=== PATIENT | male | born 1995 | race Caucasian/White ===

== ENCOUNTER 2024-02-20 05:10 | Inpatient (IN) | payer OTHER ==
[2024-02-20 05:17] VITALS: BMI 31.5
[2024-02-20] MEDS ORDERED: PANTOPRAZOLE SODIUM 40 MG VIAL ONE (06:11)
[2024-02-20] MEDS: SODIUM CHLORIDE 0.9% 500 ML INFUS.BAG IV ONE ×2 (06:17→06:18)
[2024-02-20] MEDS: PANTOPRAZOLE 40 MG TABLET PO ONE (06:18)
[2024-02-20] MEDS: PANTOPRAZOLE SODIUM 40 MG VIAL IVPUSH ONE (06:18)
[2024-02-20 06:29] LABS: VENOUS BASE EXCESS -9.5 mmol/L (-2-2); VENOUS O2 SATURATION 70.3 % (70-80); VENOUS PCO2 35.4 mmHg (38-52); VENOUS PH 7.282 (7.310-7.410)
[2024-02-20 06:46] LABS: POTASSIUM 3.5 mmol/L (3.5-5.1)
[2024-02-20 06:48] LABS: CALCIUM 7.8 mg/dL (8.5-10.1)
[2024-02-20 06:49] LABS: ALBUMIN 2.8 g/dl (3.4-5.0); BLOOD UREA NITROGEN 36.9 mg/dL (7-18)
[2024-02-20 06:51] LABS: INR 1.13 (0.83-1.09); PROTHROMBIN TIME (PATIENT) 12.9 SEC (9.7-13.0)
[2024-02-20 06:52] LABS: CREATININE 1.6 mg/dL (0.55-1.3)
[2024-02-20 06:53] LABS: BASO % 0.4 % (0-2.0); HEMATOCRIT 19.6 % (35.4-49); LYMPH % 16.7 % (8-40); MCH 27.9 pg (25.7-33.7); MCHC 32.2 g/dl (32.0-35.9); MEAN CELL VOLUME 86.7 fl (80-96); MEAN PLT VOLUME 8.1 fl (7.5-11.1); MONO % 4.9 % (3.8-10.2); PLATELET COUNT 412 10^3/uL (134-434); RBC 2.26 M/mm3 (4.00-5.60); RDW 12.7 % (11.9-15.9); WHITE BLOOD COUNT 25.9 K/mm3 (4.0-10.0)
[2024-02-20 06:54] LABS: BILIRUBIN,TOTAL 0.4 mg/dL (0.2-1); TOT PROT 4.9 g/dl (6.4-8.2)
[2024-02-20 07:07] LABS: HEMOGLOBIN 6.3 GM/dL (11.7-16.9)
[2024-02-20 07:10] LABS: LACTIC ACID 8.3 mmol/L (0.4-2.0)
[2024-02-20] MEDS: LACTATED RINGERS SOLUTION 1000 ML INFUS.BAG IV ONE (08:12)
[2024-02-20 08:27] LABS: URINE APPEARANCE CLEAR; URINE BILIRUBIN NEGATIVE (NEGATIVE); URINE COLOR YELLOW; URINE GLUCOSE (UA) NEGATIVE (NEGATIVE); URINE KETONE 2+ (NEGATIVE); URINE LEUK ESTERASE NEGATIVE (NEGATIVE); URINE NITRITE NEGATIVE (NEGATIVE); URINE PROTEIN NEGATIVE (NEGATIVE); URINE UROBILINOGEN 0.2 mg/dL (0.2-1.0)
[2024-02-20 08:36] LABS: METHADONE, UR NEGATIVE (NEGATIVE); OPIATES, URI NEGATIVE (NEGATIVE); URINE BARBITURATES NEGATIVE (NEGATIVE); URINE BENZODIAZEPINES NEGATIVE (NEGATIVE)
[2024-02-20 08:37] LABS: COCAINE, UR POSITIVE (NEGATIVE); PHENCYCLIDINE,URINE NEGATIVE (NEGATIVE); URINE AMPHETAMINES NEGATIVE (NEGATIVE)
[2024-02-20 08:56] LABS: ANISOCYTOSIS 0; MACROCYTOSIS 0
[2024-02-20 09:35] LABS: HEMATOCRIT 16.8 % (35.4-49); MCH 28.4 pg (25.7-33.7); MCHC 33.4 g/dl (32.0-35.9); MEAN CELL VOLUME 85.2 fl (80-96); MEAN PLT VOLUME 8.2 fl (7.5-11.1); PLATELET COUNT 305 10^3/uL (134-434); RBC 1.97 M/mm3 (4.00-5.60); WHITE BLOOD COUNT 20.1 K/mm3 (4.0-10.0)
[2024-02-20 09:50] LABS: HEMOGLOBIN 5.6 GM/dL (11.7-16.9)
[2024-02-20 10:19] LABS: ANISOCYTOSIS 0; MACROCYTOSIS 0
[2024-02-20] MEDS: SODIUM CHLORIDE 1,000 ML IV SCH (13:04)
[2024-02-20] MEDS ORDERED: THIAMINE 100 MG TABLET ONE (14:57)
[2024-02-20] MEDS ORDERED: FOLIC ACID 1 MG TABLET (FP) ONE (14:57)
[2024-02-20] MEDS: THIAMINE 100 MG TABLET PO SCH (15:03)
[2024-02-20] MEDS: FOLIC ACID 1 MG TABLET (FP) PO SCH (15:03)
[2024-02-20] MEDS: PANTOPRAZOLE SODIUM 160 MG in SODIUM CHLORIDE 250 ML IVPB SCH (16:55)
[2024-02-21 01:29] LABS: BASO % 0.7 % (0-2.0); EOS % 0.5 % (0-4.5); HEMATOCRIT 21.6 % (35.4-49); HEMOGLOBIN 7.3 GM/dL (11.7-16.9); LYMPH % 23.4 % (8-40); MCH 29.6 pg (25.7-33.7); MCHC 33.9 g/dl (32.0-35.9); MEAN CELL VOLUME 87.4 fl (80-96); MEAN PLT VOLUME 7.4 fl (7.5-11.1); MONO % 10.3 % (3.8-10.2); NEUT % 65.1 % (42.8-82.8); PLATELET COUNT 288 10^3/uL (134-434); RBC 2.47 M/mm3 (4.00-5.60); RDW 13.8 % (11.9-15.9); WHITE BLOOD COUNT 11.5 K/mm3 (4.0-10.0)
[2024-02-21 07:48] LABS: BASO % 0.7 % (0-2.0); EOS % 0.6 % (0-4.5); LYMPH % 22.5 % (8-40); MCH 30.7 pg (25.7-33.7); MCHC 35.2 g/dl (32.0-35.9); MEAN CELL VOLUME 87.3 fl (80-96); MEAN PLT VOLUME 7.8 fl (7.5-11.1); MONO % 8.3 % (3.8-10.2); NEUT % 67.9 % (42.8-82.8); PLATELET COUNT 273 10^3/uL (134-434); RBC 2.29 M/mm3 (4.00-5.60); RDW 13.6 % (11.9-15.9)
[2024-02-21 08:14] LABS: POTASSIUM 4.2 mmol/L (3.5-5.1)
[2024-02-21 08:28] LABS: ALBUMIN 2.6 g/dl (3.4-5.0); BLOOD UREA NITROGEN 20.2 mg/dL (7-18); CALCIUM 7.9 mg/dL (8.5-10.1); MAGNESIUM 2.1 mg/dL (1.8-2.4)
[2024-02-21 08:31] LABS: CREATININE 1.1 mg/dL (0.55-1.3)
[2024-02-21 08:32] LABS: PHOSPHOROUS 2.8 mg/dL (2.5-4.9)
[2024-02-21 08:33] LABS: TOT PROT 4.7 g/dl (6.4-8.2)
[2024-02-21 08:34] LABS: BILIRUBIN,TOTAL 0.6 mg/dL (0.2-1)
[2024-02-22 09:05] LABS: BASO % 0.7 % (0-2.0); EOS % 0.6 % (0-4.5); HEMATOCRIT 20.7 % (35.4-49); LYMPH % 23.6 % (8-40); MCH 30.1 pg (25.7-33.7); MEAN CELL VOLUME 88.5 fl (80-96); MEAN PLT VOLUME 7.5 fl (7.5-11.1); MONO % 7.2 % (3.8-10.2); NEUT % 67.9 % (42.8-82.8); PLATELET COUNT 290 10^3/uL (134-434); RBC 2.34 M/mm3 (4.00-5.60); RDW 14.7 % (11.9-15.9); WHITE BLOOD COUNT 6.7 K/mm3 (4.0-10.0)
[2024-02-22 09:26] LABS: BLOOD UREA NITROGEN 12.5 mg/dL (7-18); CALCIUM 7.8 mg/dL (8.5-10.1); POTASSIUM 3.8 mmol/L (3.5-5.1)
[2024-02-22 09:30] LABS: CREATININE 1.1 mg/dL (0.55-1.3)
[2024-02-23 10:26] LABS: BASO % 0.8 % (0-2.0); EOS % 0.9 % (0-4.5); HEMATOCRIT 24.7 % (35.4-49); HEMOGLOBIN 8.5 GM/dL (11.7-16.9); LYMPH % 28.3 % (8-40); MCH 30.4 pg (25.7-33.7); MCHC 34.6 g/dl (32.0-35.9); MEAN CELL VOLUME 87.9 fl (80-96); MEAN PLT VOLUME 7.6 fl (7.5-11.1); MONO % 9.4 % (3.8-10.2); NEUT % 60.6 % (42.8-82.8); PLATELET COUNT 319 10^3/uL (134-434); RBC 2.81 M/mm3 (4.00-5.60); RDW 14.8 % (11.9-15.9); WHITE BLOOD COUNT 5.4 K/mm3 (4.0-10.0)
[2024-02-23 18:45] VITALS: RESP 18
[2024-02-23] MEDS ORDERED: LORazepam 2 MG/ML SDV VIAL IVPUSH PRN (18:45)
[2024-02-23] MEDS ORDERED: PANTOPRAZOLE 40 MG TABLET PO SCH (22:00)
[2024-02-23] MEDS: PANTOPRAZOLE 40 MG TABLET PO SCH (22:31)
[2024-02-24 08:44] LABS: HEMATOCRIT 25.2 % (35.4-49); HEMOGLOBIN 8.6 GM/dL (11.7-16.9); MCH 29.9 pg (25.7-33.7); MCHC 34.2 g/dl (32.0-35.9); MEAN CELL VOLUME 87.4 fl (80-96); MEAN PLT VOLUME 7.5 fl (7.5-11.1); PLATELET COUNT 377 10^3/uL (134-434); RBC 2.88 M/mm3 (4.00-5.60); RDW 14.8 % (11.9-15.9); WHITE BLOOD COUNT 5.5 K/mm3 (4.0-10.0)
[2024-02-24 10:46] VITALS: BP 125/73; PULSE 97; TEMP 98.4
== END 2024-02-24 11:30 | disposition home or self-care (01) | DRG 369 ==
LOC: JER 05:10 → JERBED 11:19 → J4S 02-21 02:31 → UNDODISIN 02-23 18:36
PROVIDERS: ADMIT Internal Medicine; ATTEND Internal Medicine
PROC: 30233N1 Transfusion of Nonautologous Red Blood Cells into Peripheral Vein, Percutaneous Approach (ICD-10-PCS; principal; 2024-02-20)
PROC: 0DB58ZX Excision of Esophagus, Via Natural or Artificial Opening Endoscopic, Diagnostic (ICD-10-PCS; 2024-02-23)
PROC: 0DB68ZX Excision of Stomach, Via Natural or Artificial Opening Endoscopic, Diagnostic (ICD-10-PCS; 2024-02-23)
DX: K20.91 Esophagitis, unspecified with bleeding (principal); D62 Acute posthemorrhagic anemia; K92.2 Gastrointestinal hemorrhage, unspecified; E87.20 Acidosis, unspecified; N17.9 Acute kidney failure, unspecified; F10.239 Alcohol dependence with withdrawal, unspecified; R00.1 Bradycardia, unspecified; R56.9 Unspecified convulsions; F19.90 Other psychoactive substance use, unspecified, uncomplicated; F14.10 Cocaine abuse, uncomplicated; K44.9 Diaphragmatic hernia without obstruction or gangrene; K29.60 Other gastritis without bleeding
CPT/HCPCS: 0241U-QW; 36415; 36430; 70450-TC; 71045-TC-FY; 74220-TC-FY; 80048; 80053; 80307; 81003; 82272; 82803; 82962; 83605; 83690; 83735; 84100; 84484; 85025; 85027; 85610; 85730; 86850; 86900; 86901; 86922; 87086; 88305-TC; 88342-TC; 93005; 93010; 93308; 99291; P9038; P9058